=== PATIENT | female | born 1980 | race Caucasian/White ===

== ENCOUNTER 2016-12-10 06:41 | Day surgery (SDC) | payer OTHER ==
[2016-12-10] VITALS (11 sets, daily range): BP systolic 96–119; BP diastolic 60–79; PULSE 60–82; RESP 18–32; Ht 154.9 cm; Wt 69.0 kg
[~2016-12-10] VITALS: Ht 154.9 cm; Wt 69.0 kg
[2016-12-10] MEDS ORDERED: FENTAnyl 50 MCG/ML VIAL ONE (09:53)
[2016-12-10] MEDS ORDERED: MIDAZOLAM 1 MG/ML 2 ML INJ ONE (09:53)
[2016-12-10] MEDS ORDERED: BUPIVACAINE 0.25%/EPI (SDV) 30 ML INJ ONE (10:11)
[2016-12-10] MEDS ORDERED: BUPIVACAINE 0.25% (MPF) 30 ML INJ ONE (10:11)
[2016-12-10] MEDS ORDERED: ONDANSETRON 4 MG INJ ONE (10:27)
[2016-12-10] MEDS ORDERED: CEFAZOLIN 1 GM INJ ONE (10:27)
[2016-12-10] MEDS ORDERED: LIDOCAINE 2% (SDV) 5 ML INJ ONE (10:27)
[2016-12-10] MEDS ORDERED: PROPOFOL 20 ML ONE (10:27)
[2016-12-10] MEDS ORDERED: morphine (1 MG/ML) 10ML SYRINGE IV PRN ×2 (10:30)
[2016-12-10] MEDS ORDERED: DIPHENHYDRAMINE 50 MG INJ IV PRN (10:30)
[2016-12-10] MEDS ORDERED: HYDROCODONE/APAP (5/325) TAB PO ONE (10:30)
[2016-12-10] MEDS ORDERED: FENTAnyl 50 MCG/ML VIAL IV PRN (10:30)
[2016-12-10] MEDS ORDERED: MEPERIDINE 25 MG INJ IV PRN (10:30)
[2016-12-10] MEDS ORDERED: ONDANSETRON 4 MG INJ IV PRN (10:30)
--- NOTE | 2016-12-10 13:45 | OPR ---
DATE OF OPERATION: 12/10/2016 INDICATION: This is a 36-year-old female with a right upper back mass. She requests surgical excision. Risks, alternatives, benefits, and personnel were discussed with the patient. Patient expressed understanding and consents to the operation. PREOPERATIVE DIAGNOSIS: Right upper back mass. POSTOPERATIVE DIAGNOSIS: Right upper back mass. OPERATION PERFORMED: 1. Excision of right upper back mass with 6 cm size incision and 5 cm size mass. 2. Localization adjacent tissue transfer with the use of skin flaps. SURGEON: Amanda Lane MD SPECIMEN: Right upper back mass. COMPLICATIONS: None. ANESTHESIA: General. DESCRIPTION OF PROCEDURE: The patient was taken to the OR and prepped and draped in the usual sterile fashion. Surgical timeout was performed. IV antibiotics were given. A transverse incision was made over the right upper back mass with a 15 blade. Dissection cautery was carried down to the mass and circumferentially excised. There was good hemostasis. Due to tissue defect, localized excision ____was performed ____with interrupted 3-0 Vicryl and skin deyanira. Local anesthesia was injected. Dry dressings were applied. Dictated By: AMANDA LANE MD SB/SAV Conf#: [id number] DID#: [id number]
== END 2016-12-10 15:39 | disposition home or self-care (01) ==
LOC: SDS 06:41
PROVIDERS: ATTEND Surgery
DX: R22.2 Localized swelling, mass and lump, trunk (principal); D17.1 Benign lipomatous neoplasm of skin and subcutaneous tissue of trunk
CPT/HCPCS: 14000; 84703; 88307; J0690; J2250; J2405; J3010; Z7512; Z7610